=== PATIENT | female | born 1985 | race Caucasian/White ===

== ENCOUNTER → 2020-08-10 | Outpatient (CLI) | payer OTHER ==
[~2020-08-10] MED LIST: ELAVIL 50 MG TA50 MG PO; OMEPRAZOLE20 M1 PO
== END ==
LOC: KOH-I 15:21
DX: M79.672 Pain in left foot (principal)
CPT/HCPCS: 73630

== ENCOUNTER → 2020-09-04 | Outpatient (CLI) | payer OTHER | LOC: KOH-I 08-23 09:45 | DX: M25.572 Pain in left ankle and joints of left foot (principal); G89.29 Other chronic pain; M77.32 Calcaneal spur, left foot | CPT/HCPCS: 73721 ==

== ENCOUNTER → 2020-10-17 | Outpatient (CLI) | payer OTHER ==
[2020-10-17 12:54] LABS: HEMOGLOBIN 14.5 gm/dl (12.3-15.3); RED BLOOD COUNT 4.77 M/UL (4.00-5.10); WHITE BLOOD COUNT 6.1 K/UL (4.5-11.0)
== END ==
LOC: OPSV2 11:00
PROVIDERS: Podiatrist Foot & Ankle Surgery
DX: Z01.812 Encounter for preprocedural laboratory examination (principal); M72.2 Plantar fascial fibromatosis; L11.0 Acquired keratosis follicularis
CPT/HCPCS: 36415; 85027

== ENCOUNTER → 2020-10-20 | Day surgery (SDC) | payer OTHER ==
[~2020-10-20] VITALS: Ht 167.6 cm; Wt 89.8 kg
== END | disposition home or self-care (01) ==
LOC: OR 06:30
DX: M72.2 Plantar fascial fibromatosis (principal); L91.0 Hypertrophic scar; K21.9 Gastro-esophageal reflux disease without esophagitis; K58.9 Irritable bowel syndrome, unspecified; F41.9 Anxiety disorder, unspecified; Z88.8 Allergy status to other drugs, medicaments and biological substances
CPT/HCPCS: J1100; J1885; J2001; J2250; J2405; J2704; J2710; J2795; J3010; J7120; Q4133

== ENCOUNTER → 2021-02-20 | Outpatient (CLI) | payer OTHER ==
[~2021-02-20] MED LIST changes: +FAMOTIDINE20 MG PO; +HYDROCHLOROTH12.5 MG PO; +PREVACID15 MG PO
== END ==
LOC: MRI 09:42
DX: M79.672 Pain in left foot (principal); R60.0 Localized edema
CPT/HCPCS: 73720; A9577

== ENCOUNTER → 2021-03-02 | Outpatient (CLI) | payer OTHER ==
[2021-03-02 11:57] LABS: BUN/CREATININE RATIO 15 (0-10)
== END ==
LOC: OPSV2 10:00
PROVIDERS: Anesthesiology
DX: Z01.812 Encounter for preprocedural laboratory examination (principal)
CPT/HCPCS: 36415; 80048

== ENCOUNTER → 2021-12-03 | Outpatient (CLI) | payer OTHER | LOC: KOH-I 11:41 | DX: M79.672 Pain in left foot (principal) | CPT/HCPCS: 73630 ==

== ENCOUNTER → 2022-01-17 | Outpatient (CLI) | payer OTHER | LOC: EXRD 11:08 | DX: M81.0 Age-related osteoporosis without current pathological fracture (principal); M85.862 Other specified disorders of bone density and structure, left lower leg | CPT/HCPCS: 77080 ==

== ENCOUNTER → 2022-02-08 | Outpatient (CLI) | payer OTHER | LOC: KOH-I 13:27 | DX: M84.375A Stress fracture, left foot, initial encounter for fracture (principal); G89.29 Other chronic pain | CPT/HCPCS: 73718 ==